=== PATIENT | male | born 1970 | race Caucasian/White ===

== ENCOUNTER → 2018-08-17 | Outpatient (CLI) | payer OTHER ==
[~2018-08-17] MED LIST: LEVOTHYROXINE500 MCG IM; PERCOCET 5-3251 EACH PO; ZOFRAN ODT4 MG SUBLING
== END ==
LOC: M.MRI 11:10
DX: M75.81 Other shoulder lesions, right shoulder (principal); S43.401A Unspecified sprain of right shoulder joint, initial encounter; G89.29 Other chronic pain; X58.XXXA Exposure to other specified factors, initial encounter; Y93.89 Activity, other specified; Y92.89 Other specified places as the place of occurrence of the external cause; Y99.8 Other external cause status